=== PATIENT | male | born 1955 | race Two or more races ===

== ENCOUNTER 2022-12-22 13:15 | Emergency (ER) | payer MEDICARE ==
[~2022-12-22] VITALS: Ht 172.7 cm; Wt 90.7 kg
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
[2022-12-22] MEDS ORDERED: LIDOCAINE 1%-EPI 1:100,000 20 ML VIAL ONE (14:03)
--- NOTE | 2022-12-22 14:15 | NUR ---
IRRIGATED WOUND DONE BY ED TACH
--- NOTE | 2022-12-22 14:35 | NUR ---
SEEN BY DR ARMANDO AND ANDREA COHEN
--- NOTE | 2022-12-22 14:55 | NUR ---
SUTURE DONE BY PA STUDENT AT BED SIDE TOLOTRATED PROCEDURE WILL
--- NOTE | 2022-12-22 15:30 | NUR ---
Patient discharged to home in stable condition. Written and verbal after care instructions given. Patient verbalizes understanding of instruction.
--- NOTE | 2022-12-22 15:37 | NUR ---
Javier ann in [facility] - 12/22/22 at 1541 by MACARENA Seen by ilda LEE AND DR. RAYMOND
[2022-12-22 15:43] VITALS: BP 117/70
== END 2022-12-22 15:43 | disposition home or self-care (01) ==
LOC: ER 13:25
DX: S51.811A Laceration without foreign body of right forearm, initial encounter (principal); W25.XXXA Contact with sharp glass, initial encounter; Y93.89 Activity, other specified; Y92.096 Garden or yard of other non-institutional residence as the place of occurrence of the external cause; Y99.8 Other external cause status
CPT/HCPCS: 99282; 12002; J3490